=== PATIENT | male | born 1980 | race Caucasian/White ===

== ENCOUNTER 2016-12-12 09:57 | Inpatient (IN) | payer OTHER ==
[~2016-12-12] VITALS: Ht 175.3 cm; Wt 99.6 kg
[2016-12-12] MEDS ORDERED: SODIUM CHLORIDE FLUSH 10ML SYR IVF ONE (10:30)
[2016-12-12] MEDS ORDERED: ONDANSETRON 2MG/ML, 2ML IVPush ONE (10:30)
[2016-12-12] MEDS ORDERED: SODIUM CHLORIDE 0.9% 1,000ML IVBOLUS ONE ×2 (10:30→12:00)
[2016-12-12] MEDS ORDERED: HYDROmorphone 1 MG/ML, 1ML ONE ×2 (10:53→11:51)
[2016-12-12] MEDS ORDERED: ONDANSETRON 2MG/ML, 2ML ONE ×2 (10:53→14:28)
[2016-12-12] MEDS: HYDROmorphone 1 MG/ML, 1ML IVPush PRN ×2 (10:58→12:07)
[2016-12-12 11:10] LABS: ASPARTATE AMINO TRANSFERASE 16 U/L (15-37); BLOOD UREA NITROGEN 13 mg/dL (7-18)
[2016-12-12] MEDS ORDERED: CEFOTETAN PMX 2GM/50ML 50 ML IV ONE (11:30)
[2016-12-12] MEDS ORDERED: BUPIVACAINE/PF-EPI 0.25% 1:200K ONE (14:03)
[2016-12-12] MEDS ORDERED: MIDAZOLAM 1 MG/ML, 2ML ONE (14:26)
[2016-12-12] MEDS ORDERED: FENTANYL PF 250 MCG/5ML ONE (14:26)
[2016-12-12] MEDS ORDERED: DEXAMETHASONE 4 MG/ML, 1ML ONE (14:28)
[2016-12-12] MEDS ORDERED: ROCURONIUM 10 MG/ML ONE (14:28)
[2016-12-12] MEDS ORDERED: PROPOFOL 10 MG/ML, 20ML ONE (14:28)
[2016-12-12] MEDS ORDERED: GLYCOPYRROLATE 0.2MG/1ML ONE (14:28)
[2016-12-12] MEDS ORDERED: CEFAZOLIN 1,000 MG ONE (14:28)
[2016-12-12] MEDS ORDERED: SUCCINYLCHOLINE 20 MG/ML, 10ML ONE (14:28)
[2016-12-12] MEDS ORDERED: NEOSTIGMINE 1 MG/ML, 10ML ONE (14:28)
[2016-12-12] MEDS ORDERED: OXYcodone 5 MG/5 ML ORAL.SOL UDC PO PRN (15:00)
[2016-12-12] MEDS ORDERED: hydrALAzine 20 MG/ML, 1ML IV PRN (15:00)
[2016-12-12] MEDS ORDERED: MEPERIDINE/PF 25MG/0.5ML IVPush PRN (15:00)
[2016-12-12] MEDS ORDERED: MIDAZOLAM 1 MG/ML, 2ML IV PRN (15:00)
[2016-12-12] MEDS ORDERED: METOPROLOL 1 MG/ML, 5ML IV PRN (15:00)
[2016-12-12] MEDS ORDERED: HYDROmorphone 1 MG/ML, 1ML IV PRN (15:00)
[2016-12-12] MEDS ORDERED: ONDANSETRON 2MG/ML, 2ML IVPush PRN ×2 (15:00→20:30)
[2016-12-12] MEDS ORDERED: PROMETHAZINE 25 MG/ML, 1ML IV PRN (15:00)
[2016-12-12] MEDS ORDERED: EPHEDRINE 50 MG/ML, 1ML IVPush PRN (15:00)
[2016-12-12] MEDS ORDERED: ALBUTEROL SULFATE 2.5 MG/3 ML NPPB PRN (15:00)
[2016-12-12] MEDS ORDERED: LABETALOL 5MG/ML, 20ML IV PRN (15:00)
[2016-12-12] MEDS ORDERED: ACETAMINOPHEN 325 MG TABLET PO PRN (15:00)
[2016-12-12] MEDS ORDERED: FENTANYL PF 100 MCG/2ML ONE (16:20)
[2016-12-12] MEDS ORDERED: ACETAMINOPHEN 650 MG/20.3 ML UDC ONE (16:20)
[2016-12-12] MEDS ORDERED: OXYcodone 5 MG/5 ML ORAL.SOL UDC ONE (16:21)
[2016-12-12] MEDS: FENTANYL PF 100 MCG/2ML IV PRN ×2 (16:24→16:29)
[2016-12-12 17:15] VITALS: BP 132/84
[2016-12-12 17:18] VITALS: BP 132/84
[2016-12-12 18:19] VITALS: BP 136/62
[2016-12-12] MEDS ORDERED: morphine SULFATE 10 MG/ML, 1ML IVPush PRN (20:00)
[2016-12-12] MEDS ORDERED: FAMOTIDINE 20 MG/2 ML IVPush SCH (21:00)
[2016-12-12] MEDS: CEFOTETAN PMX 2GM/50ML 50 ML IV SCH (22:04)
[2016-12-12] MEDS: D5%-0.9% NACL+KCL 20MEQ 1,000 ML IV SCH (22:05)
[2016-12-12] MEDS: METRONIDAZOLE PMX 500MG/100ML 100 ML IV SCH (23:15)
[2016-12-12 23:47] VITALS: BP 131/85
[2016-12-13 00:47] VITALS: BP 130/82
[2016-12-13] MEDS: D5%-0.9% NACL+KCL 20MEQ 1,000 ML IV SCH ×3 (04:00→17:41)
[2016-12-13] MEDS: METRONIDAZOLE PMX 500MG/100ML 100 ML IV SCH ×4 (04:48→22:47)
[2016-12-13 06:06] LABS: BLOOD UREA NITROGEN 9 mg/dL (7-18)
[2016-12-13 07:15] VITALS: BP 134/85
[2016-12-13] MEDS: CEFOTETAN PMX 2GM/50ML 50 ML IV SCH ×2 (09:21→21:51)
[2016-12-13] MEDS ORDERED: OXYcodone/APAP 5/325MG TABLET PO PRN (09:30)
[2016-12-13] MEDS ORDERED: BISACODYL 10 MG SUPP PR ONE (11:30)
[2016-12-13 13:30] VITALS: BP 137/90
[2016-12-13] MEDS: ENOXAPARIN 30 MG/0.3 ML SQ SCH (14:19)
[2016-12-13 18:35] VITALS: BP 128/80
[2016-12-14 01:01] VITALS: BP 144/75
[2016-12-14] MEDS: ENOXAPARIN 30 MG/0.3 ML SQ SCH (01:15)
[2016-12-14] MEDS: METRONIDAZOLE PMX 500MG/100ML 100 ML IV SCH (05:03)
[2016-12-14 07:12] VITALS: BP 144/89
[2016-12-14] MEDS ORDERED: OXYC-302 PO (10:35)
== END 2016-12-14 12:00 | disposition home or self-care (01) | DRG 342 ==
LOC: ED 10:45 → EDIP 11:41 → 4NOR 12:35
PROVIDERS: ADMIT Surgery; ATTEND Surgery
PROC: 0DTJ4ZZ Resection of Appendix, Percutaneous Endoscopic Approach (ICD-10-PCS; principal; 2016-12-12 16:45)
DX: K35.80 Unspecified acute appendicitis (principal); E87.1 Hypo-osmolality and hyponatremia; E87.6 Hypokalemia; K40.90 Unilateral inguinal hernia, without obstruction or gangrene, not specified as recurrent; R73.9 Hyperglycemia, unspecified; Z72.89 Other problems related to lifestyle
CPT/HCPCS: 36415; 80048; 80053; 81003; 83605; 85025; 87040; 88304; 96374; 96375; J0690; J1100; J1170; J1650; J2250; J2405; J2704; J2710; J3010; J3490; J0330; J3480; J7030; S0028; S0074